=== PATIENT | male | born 1945 ===

== ENCOUNTER 2025-07-31 08:50 | Outpatient (AMB) | payer MEDICARE, SELFPAY ==
--- NOTE | 2025-07-31 09:03 | A.SPINEOV_ITS ---
Vital Signs 07/31/25 09:08 Height 5 ft 9 in Weight 190 lb BMI 28.1 Intake Visit Reasons: Worsening Lumbar Spinal Stenosis Intake Note: Mr. Flores is here today c/o low back pain. MRI done at [place]. Account Executive Sales Representative Required: No Allergies codeine Adverse Reaction (Severe, Verified 07/31/25 09:09) Hallucinations Physical Exam Vital Signs: BMI result Body Mass Index 28.1 Assessment & Plan Assessment & Plan (1) Scoliosis (and kyphoscoliosis), idiopathic: Code(s): M41.20 - Other idiopathic scoliosis, site unspecified Category: Medical Plan Dear Dr Yao, Thank you for referring Mr Flores to our office today. As you know he is a very nice 80-year-old gentleman with a history of peripheral neuropathy and balance issues, presents today for evaluation of a right-sided low back pain that he has had for a number of years, but particularly worse over the last 12- 14 months. It is localized on the right side of his low back almost over the SI joint area. It radiates into his hip. At 1 point he did have some pain and electrical type sensations that were radiating down into his anterior thighs, particularly at night and when he would 1st get up in the morning but that is gone away after physical therapy. The back pain is the real reason he is here today. He did have an injection in his hip at 1 point in his seemed to help a little bit. As above he has undergone physical therapy and that did help the electric feelings in his legs. He has had acupuncture for his neuropathy. No chiropractic treatments. He takes Tylenol, Motrin or naproxen or some combination of that about 3 to 4 times a week. His back pain is aggravated with standing and walking, but can also be particularly bad 1st thing in the morning when he is getting up. As the day goes on it will generally ease off a little bit and become a low-grade ache that is much more manageable. When he goes for walks he has to sit down because of the pain. He can go maybe half a mi at this point before he has to sit down. PMH: He has a peripheral neuropathy which he has had for over 30 years, that gives him loss of sensation of his feet up to about his calves. He has balance issues related to that. 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 History of carpal tunnel done bilaterally. History of cataract surgery, umbilical hernia repair, right quadriceps repair in January of 2022. 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 No history of cardiovascular disease, major pulmonary issues, liver or kidney disease, diabetes, bleeding disorders blood clots, major abdominal surgery or unusual infections. Social hx: He does not smoke, drink use any recreational drugs Medications: Lisinopril, hydrochlorothiazide, levothyroxine, pravastatin, bupropion, vitamin B12, Advair, tadalafil, vitamin D3, apple cider vinegar tablets, prostate supplement, ibuprofen, Tylenol, naproxen, loratadine, cetirizine Allergies: Codeine products give him a psychosis like reaction Physical exam: Awake alert oriented no acute distress, able to stand on his own ambulate down the hallways, he is unsteady with normal gait and worsened with tandem gait, strength exam reveals mild weakness of his hands positive Tinel's at both wrists, rest of his motor examination is normal. His right shoulder was difficult to test secondary to arthritis and biceps tendinopathy. Lower extremity strength is normal. Reflexes diminished at the biceps triceps, absent at the patella and the Achilles. Imaging review: Lumbar MRI done at [place] reveals mild scoliotic curvature of the lumbar spine, multilevel degenerative disc disease at L3-4, L4-5 and L5-S1. He has moderate to severe stenosis at L2-3 and L3-4. He has varying degrees of facet arthropathy throughout his lumbar spine, worse on the left at L3-4. Impression: 80-year-old male presents for evaluation of a chronic right-sided low back pain, localize best out to maybe the SI joint region or so, will radiate into his hip. He has diffuse degenerative disc disease as well as facet arthropathy in addition to lumbar stenosis at L2-3 and L3-4. While his pain in the back is aggravated with standing walking, currently he has no pain radiating down his legs that would be consistent with lumbar stenosis or neurogenic claudication. I do not think that needs to be treated surgically to address his back pain as we know the outcomes for that are very unpredictable. If the pain down his anterior thighs comes back, we certainly could consider it. With regard to his back pain, this is a difficult task to localize where that might be coming from. As above in his MRI imaging is showing diffuse degenerative disc disease, he has a slight scoliotic curvature as well as varying degrees of facet arthropathy. I am going to get an updated standing lumbar series with flexion-extension views just to evaluate his scoliosis a little better. I will also have him see our regional training manager Dr. Aldridge for consideration of injections to see if we can localize where this is coming from. I will defer to his judgment as to where he would like to start trying to figure this out. I admonished the patient it may take some time and a number of series of injections before we can figure out exactly where the pain might be coming from. I would like to see him back once Dr. Aldridge has a chance to treat him. Thank you for allowing us to care for your patient. The total time spent with this visit with this patient was 45 minutes reviewing history, physical exam, lumbar imaging review, and implementation of treatment plan or further diagnostic testing Max Pantoja MD,PhD [facility] [place] Orders: Orders XR lumbar spine 4V min Today M41.20 - Other idiopathic scoliosis, site un specified Referrals Physiatry Referral M41.20 - Other idiopathic scoliosis, site unspecified Coding Level of Care Code New Pt Level 4 (00442) Diagnoses Scoliosis (and kyphoscoliosis), idiopathic M41.20
--- OUTSIDE RECORDS SUMMARY | 2025-07-31 09:07 | XMS_ITS | Encounter Summary ---
Author Organization [facility] Address [address] [facility] [address] [place] [address] Phone Care Team Providers Care Cash Register Servicer Name Role Phone Christina Amezcua MD Primary Care Provider [phone] Encounter Details Date Type Department Care Team (Latest Contact Info) Description 07/12/2021 Prep for Surgery [facility] [address] [place] [id number] Germán Payton MD [address] [place] [address] [email or web address] Post-traumatic osteoarthritis of right knee (Primary Dx) Social History Tobacco Use Types Packs/Day Years Used Date Smoking Tobacco: Former Cigarettes Q uit: 1982 Smokeless Tobacco: Never Alcohol Use Standard Drinks/Week Comments Yes 2 (1 standard drink = 0.6 oz pur e alcohol) 2 weekly Sex and Gender Information Value Date Recorded Sex Assigned at Not on file Legal Sex Male 11:15 AM EDT Gender Identity Not on file Sexual Orientation Not on file documented as of this encounter Plan of Treatment Not on file documented as of this encounter Visit Diagnoses Diagnosis Post-traumatic osteoarthritis of right knee- Primary documented in this encounter Care Teams Cash Register Servicer Relationship Specialty Start Date End Date Christina Amezcua MD PCP - General Family Medicine 11/25/18 documented as of this encounter Additional Source Comments The information contained in this document represents components of the legal health record. It is not the complete legal health record.[facility]
--- OUTSIDE RECORDS SUMMARY | 2025-07-31 09:07 | XMS_ITS | Encounter Summary ---
Author Organization [facility] Address [address] [facility] [address] [place] [address] Phone Care Team Providers Care Aircraft Lay Out Worker Name Role Phone Christina Amezcua MD Primary Care Provider [phone] Encounter Details Date Type Department Care Team (Latest Contact Info) Description 05/09/2024 Ancillary Orders [address] [address] Socorro Zhong MD [address] [place] [address] Orthopedics & Sports Medicine, [place], [place] [id number] [email or web address] Osteoarthritis of right hip, unspecified osteoarthritis type (Primary Dx) Social History Tobacco Use Types Packs/Day Years Used Date Smoking Tobacco: Former Cigarettes Q uit: 1982 Smokeless Tobacco: Never Alcohol Use Standard Drinks/Week Comments Yes 2 (1 standard drink = 0.6 oz pur e alcohol) 2 weekly Education Answer Date Recorded Are you interested in more education? Not on john e 12/08/2022 Are you concerned about learning? Not on file 12/08/2022 No 12/08/2022 No 12/08/2022 Digital Access Answer Date Recorded No 01/03/2023 No 01/03/2023 Reliable internet access at home? Not on file 01/03/2023 Device with a working camera? Not on file Sex and Gender Information Value Date Recorded Sex Assigned at Not on file Legal Sex Male 11:15 AM EDT Gender Identity Not on file Sexual Orientation Not on file documented as of this encounter Plan of Treatment Pending Results Name Type Priority Associated Diagnoses Date /Time FL Guidance Needle Placement Non-Spine Imaging Routine Osteoarthritis of right hip, unspecified osteoarthritis type 05/13/2024 11:52 AM EDT Scheduled Orders Name Type Priority Associated Diagnoses Orde r Schedule FL Guidance Needle Placement Non-Spine Imaging Routine Osteoarthritis of right hip, unspecified osteoarthritis type 1 Occurrences starting 05/09/2024 until 08/08/2024 documented as of this encounter Visit Diagnoses Diagnosis Osteoarthritis of right hip, unspecified osteoarthritis type- Primary documented in this encounter Care Teams Aircraft Lay Out Worker Relationship Specialty Start Date End Date Christina Amezcua MD [email or web address] PCP - General Family Medicine 11/25/18 documented as of this encounter Additional Source Comments The information contained in this document represents components of the legal health record. It is not the complete legal health record.[facility]
--- OUTSIDE RECORDS SUMMARY | 2025-07-31 09:07 | XMS_ITS | Encounter Summary ---
Author Organization [facility] Address [address] [facility] [address] [place] [address] Phone Care Team Providers Care Creative Writing Teacher Name Role Phone Christina Amezcua MD Primary Care Provider [phone] Encounter Details Date Type Department Care Team ([facility] st Contact Info) Description 01/01/2019 Procedure Pass OR Admitting Dept - Virtual Department [address] [place] [address] Social History Tobacco Use Types Packs/Day Years Used Date Smoking Tobacco: Former Cigarettes Q uit: 1982 Smokeless Tobacco: Never Alcohol Use Standard Drinks/Week Comments Yes 0 (1 standard drink = 0.6 oz pur e alcohol) occasional Sex and Gender Information Value Date Recorded Sex Assigned at Not on file Legal Sex Male 11:15 AM EDT Gender Identity Not on file Sexual Orientation Not on file documented as of this encounter Plan of Treatment Not on file documented as of this encounter Visit Diagnoses Not on filedocumented in this encounter Care Teams Creative Writing Teacher Relationship Specialty Start Date End Date Christina Amezcua MD PCP - General Family Medicine 11/25/18 documented as of this encounter Additional Source Comments The information contained in this document represents components of the legal health record. It is not the complete legal health record.[facility]
--- OUTSIDE RECORDS SUMMARY | 2025-07-31 09:07 | XMS_ITS | Patient Health Record ---
Author Organization [facility] Address [address] [address] Care Team Providers Care Transportation Planning Technician Name Role Phone Christina Wright Primary Care Provider Gianfranco Werner Unavailable [phone] Allergies Allergen (clinical drug ingredient) Drug/Non Drug Allergy documented on EMR Reaction Allergy Type Onset Date Status sildenafil Viagra rash Drug Allergy Active Results Component Value Reference Range Notes MR-Lumbar Spine (C-) CPT 721 48 Reviewed date:06/15/2025 11:02:42 AM Interpretation: Performing Lab: Notes/Report: MR-Lumbar Spine (C-) CPT 721 48 Reviewed date:07/03/2025 04:54:53 PM Interpretation:worsening lumbar spinal stenosis Performing Lab: Notes/Report: [facility] Accession Number: [id number] Patient Name: Vinod Flores Date of : 1945 Date of Exam: 07-01-2025 Referring Physician: Gianfranco Yao [address] [place] [address] Exam: MR Lumbar Spine (C-) CPT 00357 Room Description: [facility] 1.5 MRI Lumbar Spine W/O Contrast INDICATION: Degenerative lumbar spinal stenosis - TECHNIQUE: Multiplanar, multisequence MRI of the lumbar spine was performed without contrast. COMPARISON: Lumbar spine MRI 01/27/2019 FINDINGS: LOCALIZER: No additional findings on limited localizer images. NUMBERING: The study assumes 5 [id number] lumbar type vertebral bodies. ALIGNMENT, VERTEBRAE, MARROW, AND DISCS: Mild dextroconvex lumbar curvature. Minimal retrolisthesis of L1 on L2 and L5 on S1. Subtle anterolisthesis of L2 on L3. Alignment is otherwise maintained. Vertebral body heights are preserved. Multilevel endplate osteophytes and facet arthropathy. Combined Modic type I and Modic type II signal changes at L1-L2 and L2-L3. Prominent Modic type I signal changes at L3-L4. Combined Modic type I and Modic type II signal changes at L4-L5 and L5-S1. Degenerative/reactive marrow signal changes related to the facet arthropathy at L3-L4 with facet joint effusions, left larger than right. Diffuse disc desiccation and loss of intervertebral disc height, severe at multiple levels. CONUS: The conus is normal in signal and contour, with normal level of termination at L1. PARASPINAL TISSUES: The visualized paravertebral soft tissues are unremarkable. There are multiple parapelvic renal cysts. DETAILED FINDINGS BY LEVEL: T12-L1: Diffuse disc bulge, ligamentum flavum thickening, and facet arthropathy. Minimal canal stenosis. Mild bilateral neural foraminal narrowing, right greater than left. Findings are similar to prior. L1-L2: Diffuse disc bulge, ligamentum flavum thickening, and facet arthropathy. Moderate canal stenosis. Severe left and mild right neural foraminal narrowing. The findings are similar to prior. L2-L3: Diffuse disc bulge, ligamentum flavum thickening, and facet arthropathy. There is severe canal stenosis which appears increased from prior. There is moderate left and mild right neural foraminal narrowing which is similar to prior. L3-L4: Diffuse disc bulge, ligamentum flavum thickening, and advanced facet arthropathy. There is severe canal stenosis which appears increased from prior. There is severe bilateral neural foraminal narrowing, increased from prior. L4-L5: Diffuse disc bulge, ligamentum flavum thickening, and facet arthropathy. Mild canal stenosis. There is moderate left and moderate to severe right neural foraminal narrowing which is not significantly changed. L5-S1: Diffuse disc bulge, ligamentum flavum thickening, and facet arthropathy. No significant canal stenosis. Severe bilateral neural foraminal narrowing without exiting L5 nerve root compression, similar to prior. IMPRESSION: Advanced multilevel degenerative changes of the lumbar spine as detailed above. Severe canal stenosis at L2-L3 and L3-L4 appears increased. Severe bilateral neural foraminal narrowing at L3-L4 has also increased. Remaining findings are similar to the previous exam. WSN: [id number] Ordering Physician: Gianfranco Yao MD Electronically Signed By: Samantha Ricks MD Reason For Referral Reason Worsening lumbar spi nal stenosis, evaluate and treat, thank you Diagnosis 1 Degenerative lumbar spinal stenosis (M48.061) Referral Organization [facility] [employer] Referring Provider First Name Gianfranco Referring Provider Last Name Maximilian Referring Provider Speciality Neurology Referred Provider Christo Pantoja Referral Priority Routine Medications Medication SIG (Take, Route, Frequency, Duration) Notes Start Date End Date Status Tylenol 325 MG 1 tablet as needed Orally every 6 hrs PRN Active Ketoconazole 2 % External; Duration: 30 Days Active Cetirizine HCl 10 MG 1 tablet Orally Onc e a day Active buPROPion HCl ER (XL) 300 MG Oral; Durat ion: 90 Days Active Vitamin D3 25 MCG (1000 UT) 1 capsule Or ally Once a day Active Apple Cider Vinegar 500 MG as directed Orally 05/15 Active Loratadine 10 MG 1 tablet Orally Once a day Active Prostate Support - as directed Orally 06/11/2024 Active Advair HFA 115-21 MCG/ACT Inhalation; Duration: 90 Days Active Pravastatin Sodium 40 MG Oral; Duration: 90 Days Active Lisinopril 10 MG Oral; Duration: 90 Days Active Dovonex 0.005 % 1 application Externally Twice a day Active Tadalafil 5 MG 1 tablet as needed Orally Once a day Active Albuterol Sulfate 108 (90 Base) MCG/ACT 1 puff as needed Inhalation every 4 hrs Active buPROPion HCl ER (XL) 150 MG 1 tablet in the morning Orally Once a day; Duration: 30 day(s) 06/11/2023 Not-Taking Levothyroxine Sodium 75 MCG Oral; Durati on: 90 Days Active hydroCHLOROthiazide 25 MG Oral; Duration : 90 Days Active Social History Tobacco Use: Social History Observation Description Date Details (start date - stop date) Former Smoker NA - NA Tobacco Use/Smoking Question Answer Notes Are you a former smoker How long has it been since you last smoked? > 10 years Alcohol Screen (Audit-C) Question Answer Notes Did you have a drink contain ing alcohol in the past year? Yes How often did you have a dri nk containing alcohol in the past year? 2 to 4 times a month (2 points) How many drinks did you have on a typical day when you were drinking in the past year? 1 or 2 drinks (0 point) Points 2 Interpretation Negative Problems Problem Type SNOMED Code ICD Code Onset Dates Problem Status W/U Status Risk Notes Problem Idiopathic peripheral neuropathy (13258050) Idiopathic peripheral neuropathy (G60.9) Active confirmed Problem Degenerative lumbar spinal stenosis (600398116) Degenerative lumbar spinal stenosis (M48.061) Active confirmed Vital Signs Heart Rate 81 /min 06/15/2025 Oximetry 98 % 06/15/2025 Blood pressure diastolic 82 mm Hg 06/15/2025 Height 69 in 06/15/2025 Blood pressure systolic 124 mm Hg 06/15/2025 Weight 190 lbs 06/15/2025 BMI 28.06 kg/m2 06/15/2025 Encounters Encounter Location Date Provider Diagnosis [address] [address] 06/15/2025 Gianfranco Yao Idiopathic peripheral neuropathy G60.9 and Degenerative lumbar spinal stenosis M48.[address] [address] 05/27/2025 Gianfranco Yao [address] [address] 07/03/2025 Gianfranco Yao [address] [address] 07/15/2025 Gianfranco Yao Degenerative lumbar spinal stenosis M48.061 Assessments Encounter Date Diagnosis (ICD Code) Assessment Notes Treatment Notes Treatment Clinical Notes Section Notes 06/15/2025 Idiopathic peripheral neuropathy (ICD-10 - G60.9) On his examination, I did notice some changes in his reflexes. I wonder if maybe we should update his EMG and see how severe his neuropathy is and perhaps maybe he has had a change in his neuropathy. I will discuss this with him. Otherwise we will make an appointment in a year. 06/15/2025 Degenerative lumbar spinal stenosis (ICD-10 - M48.061) He has symptoms that suggest that maybe he has lumbar spinal stenosis as a contributing factor to his symptoms. He had an x-ray of his hip that showed severe osteoarthritis. He needs an MRI of his lumbar spine to better evaluate this. 07/15/2025 Degenerative lumbar spinal stenosis (ICD-10 - M48.061) Plan Of Treatment Pending Test Test Name Order Date Vitamin B12 06/11/2023 Ceruloplasmin 06/11/2023 Copper, Serum 06/11/2023 Immunofixation, Serum 06/11/2023 Vitamin B6 06/11/2023 Vitamin B1 (Thiamine), Blood 06/11/2023 Protein Elec + Interp, Serum 06/11/2023 Next Appt Details Provider Name:Gianfranco Mclaughlin , 06/21/2026 10:00:00 AM, [address] [place] [address], [address], [place], [address], Insurance Providers Payer Name Payer Address Payer Phone Subscriber Number Group Number Insured Name Patient Relationship to Insured Coverage Start Date Coverage End Date MEDICARE [address] [place], [place] [id number] Vinod Flores Self - patient is the insured AARP Supplement [address] [place] [address] [id number] Vinod Flores Self - patient is the insured Medical (General) History Medical History History ICD Code hypercholesterolemia Hypothyroidism hypertension, benign depression asthma Numbness in both legs R20.0 Surgical History Surgery Date(Month/Year) Tonsillectomy Adnoids 1954 Oral surgery 1966 Hernia repair 1997 Squamous cell tumor excison 2004 Cartilage repair Rt knee 2004 Rt thumb ligament repair 2010 Rt wrist Carpal tunnel 2011 Lt wrist carpal tunnel 2012 Lt side neck Lipoma excision 2012 Cataracts lens replacement both eyes 201 8 Rt knee replacement 2021 Rt quadriceps repair 01/2022 squamous cell LT Humerus
--- OUTSIDE RECORDS SUMMARY | 2025-07-31 09:07 | XMS_ITS | Encounter Summary ---
Author Organization [facility] Address [address] [facility] [address] [place] [address] Phone Care Team Providers Care Visual Effects Artist Name Role Phone Christina Amezcua MD Primary Care Provider [phone] Encounter Details Date Type Department Care Team ([facility] st Contact Info) Description 02/06/2022 Procedure Pass OR Admitting Dept - Virtual Department [address] [place] [address] Social History Tobacco Use Types Packs/Day Years [...] on filedocumented in this encounter Care Teams Visual Effects Artist Relationship Specialty Start Date End Date Christina Amezcua MD PCP - General Family Medicine 11/25/18 documented as of this encounter Additional Source Comments The information contained in this document represents components of the legal health record. It is not the complete legal health record.[facility]
--- OUTSIDE RECORDS SUMMARY | 2025-07-31 09:07 | XMS_ITS | Encounter Summary ---
Author Organization [facility] Address [address] [facility] [address] [place] [address] Phone Care Team Providers Care Helpdesk Manager Name Role Phone Christina Amezcua MD Primary Care Provider [phone] Encounter Details Date Type Department Care Team (Late st Contact Info) Description 03/10/2021 Procedure Pass [facility], [address] [address] Social History Tobacco Use Types Packs/Day Years [...] on filedocumented in this encounter Care Teams Helpdesk Manager Relationship Specialty Start Date End Date Christina Amezcua MD PCP - General Family Medicine 11/25/18 documented as of this encounter Additional Source Comments The information contained in this document represents components of the legal health record. It is not the complete legal health record.[facility]
--- OUTSIDE RECORDS SUMMARY | 2025-07-31 09:07 | XMS_ITS | Encounter Summary ---
Author Organization [facility] Address [address] [place] [address] Phone Care Team Providers Care Chief Transfer And Pumphouse Operator Name Role Phone Christina Amezcua MD Primary Care Provider [phone] Encounter Details Date Type Department Care Team ([facility] st Contact Info) Description 06/13/2019 Procedure Pass [facility] Endoscopy Admitting Dept Virtual Department [address] [place] [address] Social History Tobacco Use Types Packs/Day Years [...] on filedocumented in this encounter Care Teams Chief Transfer And Pumphouse Operator Relationship Specialty Start Date End Date Christina Amezcua MD PCP - General Family Medicine 11/25/18 documented as of this encounter Additional Source Comments The information contained in this document represents components of the legal health record. It is not the complete legal health record.[facility]
--- OUTSIDE RECORDS SUMMARY | 2025-07-31 09:07 | XMS_ITS | Encounter Summary ---
Author Organization [facility] Address [address] [place] [address] Phone Care Team Providers Care Laser Engraver Name Role Phone Christina Amezcua MD Primary Care Provider [phone] Encounter Details Date Type Department Care Team (Late st Contact Info) Description 12/19/2021 Prep for Surgery [facility] [address] [place] [address] [place] [id number] Germán Payton MD [address] [place] [phone] [email or web address] [email or web address] Social History Tobacco Use Types Packs/Day Years [...] on filedocumented in this encounter Care Teams Laser Engraver Relationship Specialty Start Date End Date Christina Amezcua MD PCP - General Family Medicine 11/25/18 documented as of this encounter Additional Source Comments The information contained in this document represents components of the legal health record. It is not the complete legal health record.[facility]
--- OUTSIDE RECORDS SUMMARY | 2025-07-31 09:07 | XMS_ITS | Encounter Summary ---
Author Organization [facility] Address [address] [place] [address] Phone Care Team Providers Care History Card Clerk Name Role Phone Christina Amezcua MD Primary Care Provider [phone] Encounter Details Date Type Department Care Team ([facility] st Contact Info) Description 12/26/2021 Procedure Pass [place] Admitting Dept - Virtual Department [address] [place] [address] Social History Tobacco Use Types Packs/Day Years [...] on filedocumented in this encounter Care Teams History Card Clerk Relationship Specialty Start Date End Date Christina Amezcua MD PCP - General Family Medicine 11/25/18 documented as of this encounter Additional Source Comments The information contained in this document represents components of the legal health record. It is not the complete legal health record.[facility]
--- OUTSIDE RECORDS SUMMARY | 2025-07-31 09:07 | XMS_ITS | Clinical Summary ---
Author Organization [facility] Address [address] [place] [address] Care Team Providers Care Psychodramatist Name Role Phone Christina Amezcua MD Primary Care Provider Allergies Active Allergy Reactions Criticality Noted Date Comments Codeine Phosphate strong family hx of rxn Medications albuterol (PROVENTIL HFA;VENTOLIN HFA;PROAIR) 90 mcg/actuation HFA Aerosol Inhaler Inhale 1-3 puffs into the lungs as needed for Wheezing. Use with spacer Active buPROPion (WELLBUTRIN SR) 100 mg Tablet Sustained Release Take 100 mg by mouth daily. Active buPROPion (WELLBUTRIN XL) 300 mg Tablet Sustained Release 24 hr Take 300 mg by mouth every morning. Active pravastatin (PRAVACHOL) 40 mg Tablet Take 40 mg by mouth daily. Active lisinopril (PRINIVIL;ZESTR IL) 10 mg Tablet Take 10 mg by mouth daily. Active hydrochlorothia zide (HYDRODIURIL) 12.5 mg Tablet Take 12.5 mg by mouth daily. Active levothyroxine (SYNTHROID) 25 mcg Tablet Take 25 mcg by mouth daily. Active tadalafil (CIALIS) 5 mg Tablet Take 5 mg by mouth as needed for Erectile Dysfunction. Active calcipotriene (DOVONEX) 0.005 % Cream Apply topically as needed. Active cholecalciferol , Vitamin D3, 1,000 unit Capsule Take 1 capsule by mouth daily. Active sodium chloride (OCEAN) 0.65 % Aerosol, [place] 2 sprays by Each Nare route every morning. Active loratadine (CLARITIN) 10 mg Tablet Take 10 mg by mouth as needed for Allergies (Seasonal, January, March and April months). Active calcium carbonate (TUMS) 200 mg calcium (500 mg) Tablet, Chewable Take 1 tablet by mouth daily. Active ibuprofen (ADVIL;MOTRIN) 200 mg Tablet Take 400 mg by mouth as needed for Pain. Active acetaminophen (TYLENOL) 325 mg Tablet Take 650 mg by mouth as needed for Pain. Active fluticasone-lazarus meterol (ADVAIR HFA) 45-21 mcg/actuation HFA Aerosol Inhaler Inhale 2 puffs into the lungs 2 times daily. Active SAW/VIT E/SOD MARCO A/LYC/BETA/PY G (PROSTATE HEALTH ORAL) Take by mouth. Ac tive nystatin (MYCOSTATIN) Cream Apply topically 2 times daily. 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 Immunizations Immunization Administration Dates Next Due Influenza (Fluzone HD) Trivalent High Dose 05/16 Influenza Vaccine, Whole 06/04/2008 Social History Tobacco Use Types Packs/Day Years Used Date Smoking Tobacco: Former Cigarettes Q uit: 05/27/1993 Smokeless Tobacco: Never Alcohol Use Standard Drinks/Week Comments Yes 2 (1 standard drink = 0.6 oz pur e alcohol) Sex and Gender Information Value Date Recorded Sex Assigned at Not on file Legal Sex Male 7:09 AM EST Gender Identity Not on file Sexual Orientation Not on file Last Filed Vital Signs Vital Sign Reading Time Taken Comments Blood Pressure 132/85 10/22/2015 8:26 AM EST Pulse 81 10/22/2015 8:26 AM EST Temperature - - Respiratory Rate 18 06/01/2015 3:38 PM EDT Oxygen Saturation - - Inhaled Oxygen Concentration - - Weight 80.7 kg (178 lb) 05/16/2016 8:33 AM EDT Height 177.8 cm (5' 10 ) 10/22/2015 8:26 AM EST Body Mass Index 25.54 10/22/2015 8:26 AM EST Plan of Treatment Health Maintenance Due Date Last Done Comments Hepatitis C Screening 1963 Tetanus/Diphtheria/Pertussis Vaccines (1 - Tdap) 1965 Pneumoccocal Vaccine: 50+ (1 of 1 - PCV) 1996 Zoster vaccine (1 of 2) 1996 Advance Directive 2001 RSV Vaccine (1 - 1-dose 75+ series) 2021 Covid-19 Vaccine (1 - 2024- season) 2025 Influenza (Flu) vaccine (1 o f 1 - Influenza standard series) 04/13/2025 05/16/2016, 06/04/2008 Insurance MEDICARE [facility] Care Teams Psychodramatist Relationship Specialty Start Date End Date Christina Amezcua MD [address] [place] [id number] PCP - General Family Medicine 07/12/17
[2025-07-31 09:08] VITALS: BMI 28.1
--- OUTSIDE RECORDS SUMMARY | 2025-07-31 09:08 | XMS_ITS | Patient Health Record ---
Author Organization [facility] Address [address] [facility] [address] [place] [address] Care Team Providers Care Hat And Cap Parts Cutter Hand Name Role Phone Christina Arteaga Primary Care Provider Unavail able ALMAZ CRYSTAL Unavailable [phone] Allergies Allergen (clinical drug ingredient) Drug/Non Drug Allergy documented on EMR Reaction Allergy Type Onset Date Status sildenafil Viagra rash Drug Allergy Active codeine Codeine Unknown Drug Allergy Active Reason For Referral No Information Medications Medication SIG (Take, Route, Frequency, Duration) Notes Start Date End Date Status Ibuprofen 400 MG 1 tablet with food or milk as needed Orally Three times a day Not-Taking Pravastatin Sodium 40 MG 1 tablet Orally Once a day Active Dovonex 0.005 % 1 application Externally Twice a day rarely Active Aspirin 81 MG 1 tablet Orally Once a day Not-Taking Tadalafil 5 MG 1 tablet as needed Orally Once a day Active Ketoconazole 2 % 1 application Externally Once a day prn Not-Taking hydroCHLOROthiazide 25 MG 1 tablet in th e morning Orally Once a day Active Ciclopirox 8 % 1 application to each toenail Externally Once a day; Duration: 30 days Active Ciclopirox 0.77 % 1 application Externally Once a day; Duration: 90 days 08/09/2021 Active buPROPion HCl ER (XL) 300 MG 1 tablet in the morning Orally every other day Active Lisinopril 10 MG 1 tablet Orally Once a day Active Naproxen 500 MG 1 tablet with food or milk as needed Orally every 12 hrs Active Levothyroxine Sodium 75 MCG 1 tablet in the morning on an empty stomach Orally Once a day Active Apple Cider Vinegar qhs Active Vitamin D 25 MCG (1000 UT) 1 tablet Oral ly Once a day Active Gabapentin QD Not-Takin g Albuterol Sulfate HFA 108 (90 Base) MCG/ACT 1 puff as needed Inhalation every 4 hrs prn Active Tylenol 8 Hour 650 MG 2 tablets as needed Orally every 8 hrs 1,000 BID Not-Taking Advair HFA 115-21 MCG/ACT 2 puffs Inhala tion Twice a day Active Problems Problem Type SNOMED Code ICD Code Onset Dates Problem Status W/U Status Risk Notes Problem Idiopathic peripheral autonomic neuropathy (96300257) Idiopathic peripheral autonomic neuropathy (G90.09) Active confirmed Vital Signs Heart Rate 74 /min 07/13/2025 Temperature 96.9 degrees Fahrenheit 07/13/2025 Respiratory Rate 16 /min 07/13/2025 Height 5ft 9in in 07/13/2025 Weight 192.2 lbs 07/13/2025 BMI 28.38 kg/m2 07/13/2025 Encounters Encounter Location Date Provider Diagnosis [facility] [address] [address] 07/13/2025 ALMAZ CRYSTAL Onychomycosis B35.1 ; Ingrown toenail of right foot L60.0 ; Pain in right foot M79.671 and Idiopathic peripheral autonomic neuropathy G90.09 [facility] [address] [address] 07/20/2025 ALMAZ CRYSTAL Assessments Encounter Date Diagnosis (ICD Code) Assessment Notes Treatment Notes Treatment Clinical Notes Section Notes 07/13/2025 Onychomycosis (ICD-10 - B35.1) I reviewed with the patient various treatment methods for toenail fungus including topical, oral, laser, and removal of the infected toenails. We discussed continuing topical medication. I explained to the patient that a toenail takes about 12 months to grow out completely, so they should start to slowly see results. I would like him to continue to apply the ciclopirox to the toenails daily. 07/13/2025 Ingrown toenail of right foot (ICD-10 - L60.0) We discussed the ingrown toenail of the right big toe is caused by the fungus of the nail. I recommended that he restart treatment for the fungus. I explained to the patient how ingrown toenails form: genetics, improper shoes, trauma, fungus. I reviewed with the patient proper nail care and how to conservatively treat ingrown toenails by cutting the nail straight across, massage the skin away from the edges of the nail, and to soak the feet daily. I explained that the ingrown toenail starts at the root and this is what needs to be removed to make the toenail grow back straight. I reviewed nail avulsions with the patient and also phenol/surgical matrixectomies. Using a nail puller, I performed a slant back procedure of the lateral side of the right hallux; pt tolerated well. Bacitracin and a band-aid applied. I recommended a more permanent procedure if this does not help. He is in agreement with this plan. 07/13/2025 Pain in right foot (ICD-10 - M79.671) 07/13/2025 Idiopathic peripheral autonomic neuropathy (ICD-10 - G90.09) We discussed that peripheral neuropathy does not have a cure. He has no underlying diagnosis or cause meaning this is not due to a spinal issue, a nerve entrapment, or a metabolic issue. We discussed that the nerve cell does not regenerate and therefore cannot fix a damaged nerve. We discussed all current treatments are to either kill the nerve or to mask the symptoms of the neuropathy. We discussed these will only provide a temporary relief. He does not wish to pursue treatment at this time. He currently follows with Dr. Yao. Plan Of Treatment Pending Test Test Name Order Date Fungus Culture With Stain 07/28/2021 Insurance Providers Payer Name Payer Address Payer Phone Subscriber Number Group Number Insured Name Patient Relationship to Insured Coverage Start Date Coverage End Date [employer] [place] [address] [place] [phone] [id number] Vinod Flores Self - patient is the insured A[employer] Secondary to Medicare [address] [place] [address] [id number] Vinod Flores Self - patient is the insured Medical (General) History Medical History History ICD Code hyperglycemia benign essential hypertension asthma, adult on set abnormal gait idiopathic peripheral neuropathy overweight benign prostatic hyperplasia hypertriglyceridemia hypothyroidism recurrent major depression 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, tongue 2004 goe s every year to [facility] for cancer screening remote smoker seasonal allergies, cat allergies left bundle branch block psoriasis erectile dysfunction BPH Surgical History Surgery Date(Month/Year) repair of hernia of anterior abdominal w all 01/01/2019 tonsil/ adenoids 1954 oral surgery 1966 inguinal hernia left with mesh 1996 colonoscopy routine 1996 squamous cell CA tongue removed 2003 right knee arthroscopy cartilidge remove d 2003 colonoscopy routine, polyps 2008 ligament right thumb repair 2011 carpal tunnel right 2012 carpal tunnel left 2013 lipoma removed left neck 2013 colonoscopy, polyps ( five year follow u p recommended ) 2013 right knee replacement 12/26/2021 right knee surgery muscles got ripped u p 01/2022 Hospitalization History Reason Date(Month/Year) right knee replacement 12/26/2021 squamous cell CA tongue surgery 2003
--- OUTSIDE RECORDS SUMMARY | 2025-07-31 09:08 | XMS_ITS | Clinical Summary ---
Author Organization [facility] Address [address] [place] [id number] Phone Care Team Providers Care Mental Health Nurse Practitioner Name Role Phone Christina Amezcua MD Primary Care Provider Allergies Active Allergy Reactions Criticality Noted Date Comments Codeine Mental Status Change High 12/26/2018 Angry, incoherent House Dust Sneezing Low 12/10/2018 Hay Fever And Allergy Relief Sneezing Low 12/10/2018 Mold Extracts Sneezing Low 12/10/2018 Oxycodone Mental Status Change High 12/26/2018 Angry, incoherent Pollen Extracts Sneezing Low 12/10/2018 Sildenafil Rash Low 04/15/2024 Hydrocodone-Acetaminop hen Mental Status Change High 12/26/2018 Angry, incoherent Medications lisinopril (PRINIVIL,ZESTR IL) 10 MG tablet Take 10 mg by mouth daily. Active pravastatin (PRAVACHOL) 40 MG tablet Take 40 mg by mouth daily. Active hydroCHLOROthia zide (HYDRODIURIL) 25 MG tablet Take 25 mg by mouth daily. Active buPROPion (WELLBUTRIN XL) 300 MG ER 24 hr tablet Take 300 mg by mouth daily. Alternating 150mg and 300mg every other day Active levothyroxine (SYNTHROID, LEVOTHROID) 75 MCG tablet Take 75 mcg by mouth every morning. Active cholecalciferol (VITAMIN D3) 1,000 unit tablet Take 1,000 Units by mouth daily. Active fluticasone propion-salmete rol (ADVAIR HFA) 115-21 mcg/actuation inhaler Inhale 2 puffs into the lungs daily. Daily or bid depending on pulmonary status and allergens Active albuterol 90 mcg/actuation inhaler Inhale 2 puffs into the lungs every 6 (six) hours as needed for wheezing. Active ketoconazole 2 % cream Apply topically daily. Active calcipotriene (DOVONEX) 0.005 % cream Apply topically 2 (two) times a day. Active saw palmetto 160 mg Cap Take by mouth. Acti ve sodium chloride (OCEAN) 0.65 % nasal spray 1 spray by Nasal route as needed for congestion. Active loratadine (CLARITIN) 10 mg tablet Take 10 mg by mouth daily. Every other day Active acetaminophen (TYLENOL) 325 mg tablet Take 3 tablets (975 mg total) by mouth every 8 (eight) hours. 100 tablet 2 2 Active Additional Information Patient taking differently:975 mg OralAs needed, as needed, Reported on 04/27/2022 ibuprofen (ADVIL,MOTRIN) 200 MG tablet Take 200 mg by mouth as needed for pain (specific location in comments). Active aspirin 81 MG EC tablet 1 tablet Orally Once a day Active ciclopirox (PENLAC) 8 % solution 1 application to each toenail Externally Once a day for 30 days Active naproxen (NAPROSYN) 500 MG tablet 1 tablet with food or milk as needed Orally every 12 hrs Active prednisoLONE acetate (PRED FORTE) 1 % ophthalmic suspension 4 Active tadalafiL (CIALIS) 5 MG tablet ONLY as needed Activ e Active Problems Problem Noted Date Diagnosed Date Difficult airway for intubation, initial encount er 02/06/2022 Overview (02/06/2022): anterior with stiff airway noted. Intubated with Aguila 2 - view with cricoid. S/P total knee replacement using cement, right 0 12/26/2021 Bodies, loose, joint, knee, right 04/14/2021 Post-traumatic osteoarthritis of right knee 09/2020 Bilateral knee pain 06/23/2020 Ventral hernia without obstruction or gangrene 0 12/10/2018 Assessment & Plan (01/16/2019 9:45 AM EDT): The patient is doing well, feels well. Has no pain. No evidence of recurrent hernia on exam. I have advised no heavy lifting for six weeks. Follow up prn. Assessment & Plan (12/10/2018 1:35 PM EDT): The patient has an incarcerated ventral hernia a bit above his umbilicus. I had a conversation with the patient today with regard to laparoscopic versus open hernia repair surgery. The risks and benefits of hernia repair including but not limited to the risks of infection, mesh infection, higher risk of recurrence if done without mesh, bleeding, chronic pain, recurrence, and scar, as well as the need for an open procedure, pain from the christa, damage to organs and heart/lung risks of anesthesia if done laparoscopically have been explained to the patient. The patient understands these risks and wishes to proceed. He also understands that this repair is not a cosmetic procedure and that he could be left with a nonaesthetic result, such as a lump, bulge, scar and/or skin changes at the repair site. I would recommend laparoscopic repair and we went over the reasons for that. The patient understands the signs and symptoms of hernia strangulation and will seek immediate medical attention should a pinching feeling or severe pain in the area of the hernia, fever, chills, nausea, and/or vomiting develop. Plan is for laparoscopic ventral hernia repair. Ventral hernia Sleep apnea Overview (03/09/2021): no CPAP Psoriasis Idiopathic peripheral neuropathy Hypertensive disorder Hypothyroidism Hyperlipidemia Depressive disorder Bronchitis BPH (benign prostatic hyperplasia) Asthma Overview (03/09/2021): has inhaler Arrhythmia Overview (03/09/2021): benign left bundle Family History Medical History Relation Comments Brain tumor Father Cerebral aneurysm Mother Relation Status Comments Father (Age 51) Mother (Age 82) Social History Tobacco Use Types Packs/Day Years Used Date Smoking Tobacco: Former Cigarettes Q uit: 1981 Smokeless Tobacco: Never Tobacco Cessation:Counseling Given: Not Answered Alcohol Use Standard Drinks/Week Comments Yes 2 [...] Sign Reading Time Taken Comments Blood Pressure 132/66 02/06/2022 7:30 PM EDT Pulse 78 02/06/2022 7:30 PM EDT Temperature 36.6 C (97.9 F) 02/06/2022 7:30 PM EDT Respiratory Rate 18 02/06/2022 7:30 PM EDT Oxygen Saturation 98% 02/06/2022 7:30 PM EDT Inhaled Oxygen Concentration - - Weight 90.4 kg (199 lb 3.2 oz) 04/15/2024 1:02 P M EDT Height 177 cm (5' 9.69 ) 04/15/2024 1:02 PM EDT Body Mass Index 28.84 04/15/2024 1:02 PM EDT Plan of Treatment Health Maintenance Due Date Last Done Comments BLOOD PRESSURE 1946 LIPID PANEL 1946 TSH LEVEL 1946 DEPRESSION SCREENING 1958 SMOKING Hx and SMOKELESS TOBACCO SCREENING 1959 HEPATITIS C SCREENING 1964 PNEUMOCOCCAL VACCINES (50+ years) (1 of 2 - PCV) 1965 RSV VACCINE (1 - 1-dose 75+ series) 2021 CREATININE LEVEL 12/27/2022 12/27/2021, 11/24/2021 POTASSIUM LEVEL 12/27/2022 12/27/2021, 11/24/2021 ZOSTER VACCINES (3 of 3) 01/10/2024 11/15/2023, 02/12 INFLUENZA VACCINE (#1) 2025 , 05/18/2023, 04/28/2022, Additional history exists COVID-19 VACCINE ( season) 2025 05/08/2024, 11/15/2023, 11/15/2023, Additional history exists Adult Td,Tdap Booster 2029 2019, 009 HEPATITIS A VACCINES Aged Out 12/12/2018 No long er eligible based on patient's age to complete this topic HIB VACCINES Aged Out No longer eligi ble based on patient's age to complete this topic MENINGOCOCCAL VACCINES (ACWY) Aged Out No longer eligible based on patient's age to complete this topic MENINGOCOCCAL VACCINES (B) Aged Out N o longer eligible based on patient's age to complete this topic Medical Devices Implanted Type Area Metal Coater Operator Device Identifier Shelf Expiration Date Model / Serial / Lot Device Fixation 37mm Optifix Pdlla Smooth Head Hollow Core Angled Tip Absorbable 30 Fastner - [id number] Implanted:Qty: 1 on 01/01/2019 by Cami Helton MD at [facility] N/A: Abdomen DAVOL 09/09/2020 [id number] / / [id number] Mesh Graft 4.5in Ventral[address] St Polypropylene Hernia Monofil Hydrogel Echo Ps Positioning System Repair [place] - [id number] Implanted:Qty: 1 on 01/01/2019 by Cami Helton MD at [facility] N/A: Abdomen DAVOL 09/09/2020 [id number] / / [id number] Bone Cement Antibiotic Refobacin - [id number] Implanted:Qty: 2 on 12/26/2021 by Germán Payton MD at [facility] Right: Knee SHOSHANA / DIV OF BRISTOL SQUIBB 01/11/2024 [id number] / / [id number] Knee Implant 70.0mm Component Femoral Vanguard Interlok [place] Cruciate Retaining Cemented Right - [id number] Implanted:Qty: 1 on 12/26/2021 by Germán Payton MD at [facility] Right: Knee [employer] 02/22/2031 [id number] / / [id number] Knee Tray 79mm Plate Bone Primary Vanguard [place] I Beam Revision Interlock Cemented - [id number] Implanted:Qty: 1 on 12/26/2021 by Germán Payton MD at [facility] Right: Knee [employer] 08/27/2031 [id number] / / [id number] Knee Implant 43r93ih Patella Asymmetric - [id number] Implanted:Qty: 1 on 12/26/2021 by Germán Payton MD at [facility] Right: Patella SHOSHANA / DIV [employer] BRISTOL SQUIBB 11/21/2026 [id number] / / [id number] Knee Bearing [id number] Tibial Vanguard Revision Polyethylene Cemented Stabilization Anterior - [id number] Implanted:Qty: 1 on 12/26/2021 by Germán Payton MD at [facility] Right: Knee [employer] 09/26/2022 [id number] / / [id number] Procedures Procedure Name Priority Date/Time Associated Diagnosis Comments BASIC METABOLIC PANEL (BMP) Routine 12/27/2021 5:28 AM EDT from Last 3 Months or Most Recently Relevant to Health Maintenance Results * (ABNORMAL) Basic metabolic panel (12/27/2021 5:28 AM EDT) SODIUM 137 133 - 146 mmol/L [facility] CHLORIDE 102 96 - 108 mmol/L [facility] POTASSIUM 3.9 3.3 - 5.1 mmol/L [facility] CO2 23 21 - 35 mmol/L [facility] BUN 19 6 - 19 mg/dL [facility] CREATININE 1.10 0.5 - 1.5 mg/dL [facility] GLUCOSE 144(H) 70 - 99 mg/dL [facility] CALCIUM 8.7 8.4 - 10.3 mg/dL [facility] EGFR 70 >59 mL/min/1.7 3m2 [facility] Comment:Estimated glomerular filtration rate calculated using the CKD-EPI refit equation. ANION GAP 16 10 - 20 mmol/L [facility] Blood 12/27/2021 5:28 AM EDT 12/27/2021 5:49 AM EDT us Germán Payton MD LAB BLOOD BKR ORDERAB LES Final Result [facility] [address] [place] [address] from Last 3 Months or Most Recently Relevant to Health Maintenance Insurance MEDICARE PART A & B MEDICARE SUPPLEMENT MEDICARE PART A & B [facility] MEDICARE SUPPLEMENT MEDICARE PART A & B MEDICARE SUPPLEMENT MEDICARE PART A & B [facility] MEDICARE SUPPLEMENT MEDICARE PART A & B [facility] MEDICARE SUPPLEMENT MEDICARE PART A & B MEDICARE SUPPLEMENT MEDICARE PART A [place] [id number] MEDICARE PART A & B Member Subscriber Plan / Payer (Ef fective 2016-Present) Name:Vinod Flores Member ID:[id number] Relation to Subscriber:Self Name:Vinod Flores Subscriber ID:[id number] Payer ID:[id number] Group ID:Not on file Type:Medicare Address: [employer] [address] MEDICARE SUPPLEMENT MEDICARE PART A & B Member Subscriber Plan / Payer (Ef fective 2016-Present) Name:Vinod Flores Member ID:[id number] Relation to Subscriber:Self Name:Vinod Flores Subscriber ID:[id number] Payer ID:[id number] Group ID:Not on file Type:Medicare Address: [employer] [address] MEDICARE SUPPLEMENT Advance Directives For more information, please contact: [phone] (9AM - 5PM [place], Sunday-Sunday) * Full Code (Latest Code Status on File) Date Activated Date Inactivated Comments 02/06/2022 12:21 PM Question Answer Comments Code Status Confirmed With: Patient * Full Code Date Activated Date Inactivated Comments 12/26/2021 3:09 PM 02/06/2022 12:21 PM Question Answer Comments Code Status Confirmed With: Patient * Full Code Date Activated Date Inactivated Comments 12/26/2021 8:35 AM 12/26/2021 3:09 PM Question Answer Comments Code Status Confirmed With: Patient * Full Code (Presumed) Date Activated Date Inactivated Comments 01/01/2019 9:42 AM 01/01/2019 6:46 PM Care Teams Mental Health Nurse Practitioner Relationship Specialty Start Date End Date Christina Amezcua MD [email or web address] PCP - General Family Medicine 11/25/18 Additional Source Comments The information contained in this document represents components of the legal health record. It is not the complete legal health record.[facility]
== END 2025-07-31 09:57 | disposition home or self-care (01) ==
LOC: HO.HNS 08:51
PROVIDERS: Visit Provider Physician Assistant
DX: M41.20 Other idiopathic scoliosis, site unspecified (principal)
CPT/HCPCS: 99204

== ENCOUNTER 2025-07-31 08:50 | Outpatient (REF) | payer MEDICARE, SELFPAY ==
--- NOTE | ~2025-07-31 | XR_ITS ---
EXAM: CR Xr Lumbar Spine 4v Min TECHNIQUE: PA, and lateral: Flexion, extension, and neutral views, of the lumbar spine. 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 There is 19 degrees dextroscoliosis. T12-L1: There is minimal disc space narrowing with endplate osteophytes. L1-L2: There is mild to moderate disc space narrowing with endplate sclerosis and osteophytes. L2-L3: There is mild disc space narrowing and subtle right lateral listhesis. There is 4 mm anterolisthesis during flexion. Levels aligned in the neutral x-ray. There is facet sclerosis and osteophytes. There is abutment of the spinous process. L3-L4: There is moderate severe disc space narrowing with endplate sclerosis and minimal grade 1 anterolisthesis. This facet sclerosis and osteophytes. There is abutment of the spinous processes. L4-L5: There is moderate severe disc space narrowing with endplate sclerosis and osteophytes. There is subtle retrolisthesis and mild right lateral listhesis. There is facet sclerosis and osteophytes. L5-S1: There is moderate severe disc space narrowing with endplate sclerosis and osteophytes. There is also facet sclerosis and osteophytes. XR/XR lumbar spine 4V min IMPRESSION: Degenerative disc disease, facet osteoarthritis, and dextroscoliosis. L2-3: Possible instability. There is abutment and spinal processes at L2-3 and L3-4. Electronically signed by: Bj Payton MD 07/31/2025 10:38 AM EST
== END 2025-07-31 08:51 | disposition home or self-care (01) ==
LOC: HO.HOSX 08:50
PROVIDERS: Visit Provider Physician Assistant
DX: M41.20 Other idiopathic scoliosis, site unspecified (principal)
CPT/HCPCS: 72110; 99202

== ENCOUNTER → 2025-07-31 10:05 | Outpatient (BNV) | payer MEDICARE, SELFPAY | PROVIDERS: Visit Provider Radiology Diagnostic Radiology | DX: M51.369 Other intervertebral disc degeneration, lumbar region without mention of lumbar back pain or lower extremity pain (principal); M47.816 Spondylosis without myelopathy or radiculopathy, lumbar region; M41.86 Other forms of scoliosis, lumbar region | CPT/HCPCS: 72110 ==